=== PATIENT | male | born 1965 | race Caucasian/White ===

== ENCOUNTER 2017-08-13 19:04 | Emergency (ER) | payer BC ==
[2017-08-13 19:45] VITALS: BP 110/68
[2017-08-13] MEDS ORDERED: Lidocaine 1%* 5 ML VIAL INJ ONE (19:48)
--- NOTE | 2017-08-13 20:30 | UC ---
Laceration HPI - HPI Summary HPI Summary: Pt c/o laceratio to palm of right hand. Pt reports that he was picking up metal shovel from yard and cut hand on edge of shovel. Pt had tetanus vaccination in June 2017. - History Of Current Complaint Chief Complaint: UCLaceration Stated Complaint: LACERATION RIGHT HAND Time Seen by Provider: 08/13/17 19:44 Hx Obtained From: Patient Laceration Location: Hand Mechanism Of Injury: Sharp Trauma Onset/Duration: Sudden Onset Severity: Mild Pain Intensity: 1 Aggravating Factors: Position, Movement Related History: Dominant Hand Right - Allergies/Home Medications Allergies/Adverse Reactions: Allergies Allergy/AdvReac Type Severity Reaction Status Date / Time No Known Allergies Allergy Verified 08/13/17 19:41 PMH/Surg Hx/FS Hx/Imm Hx Previously Healthy: Yes - Surgical History Surgical History: None - Family History Known Family History: Positive: Cardiac Disease - Social History Occupation: Employed Full-time Lives: With Family Alcohol Use: Occasionally Substance Use Type: None Smoking Status (MU): Never Smoked Tobacco Have You Smoked in the Last Year: No - Immunization History Most Recent Tetanus Shot: June 2017 Review of Systems Constitutional: Negative Skin: Other - laceration Eyes: Negative ENT: Negative Respiratory: Negative Cardiovascular: Negative Gastrointestinal: Negative Genitourinary: Negative Motor: Negative Neurovascular: Negative Musculoskeletal: Negative Neurological: Negative Psychological: Negative Is Patient Immunocompromised?: No All Other Systems Reviewed And Are Negative: Yes Physical Exam Triage Information Reviewed: Yes Appearance: Well-Appearing Vital Signs: Initial Vital Signs Temp 98.8 F 08/13/17 19:42 Pulse 82 08/13/17 19:42 Resp 18 08/13/17 19:42 BP 110/68 08/13/17 19:42 Pulse Ox 97 08/13/17 19:42 Vital Signs Reviewed: Yes Eye Exam: Normal ENT Exam: Normal Dental Exam: Normal Neck exam: Normal Respiratory Exam: Normal Respiratory: Positive: No respiratory distress Musculoskeletal Exam: Normal Musculoskeletal: Positive: Strength Intact, ROM Intact Neurological Exam: Normal Psychological Exam: Normal Skin Exam: Other - laceration palm of right hand at base of thumb Laceration Repair - Laceration Repair 1 Description: Linear Laceration Size After Repair: Length (cm) - 3.5, Width (mm) - 4, Depth (mm) - 3 Modified For Repair: No Type Injection: Local Anesthesia Used: 1.0% Lido Cleansing Completed Via Routine Prep: Yes Closure Method: Single Layer - 11 sutures of 4-0 Suture Of: Skin Laceration Course/Dx - Course/Dx Course Of Treatment: 11 sutures of 4-0 placed. edges well approximated. tetanus UTD - Differential Dx - Laceration/Wound Differental Diagnoses: Laceration Provider Diagnoses: laceration repair right palm of hand. 11 sutures of 4-0 Discharge - Sign-Out/Discharge Documenting (check all that apply): Discharge/Admit/Transfer - Discharge Plan Condition: Stable Disposition: HOME Prescriptions: Cephalexin CAP* [Keflex 500 CAP*] 500 mg PO Q12H #10 cap Patient Education Materials: Laceration (ED) Referrals: Sybil Pike [Primary Care Provider] - If Needed Additional Instructions: Please return in 8-10 days for suture removal. Please monitor for signs and symptoms of infection such as increased tenderness, redness, swelling, purulent discharge and fever or chills. - Billing Disposition and Condition Condition: STABLE Disposition: HOME
[2017-08-13] MEDS ORDERED: Cephalexin CAP* 500 MG PO ONE (20:39)
== END 2017-08-13 20:49 | disposition home or self-care (01) ==
LOC: UCCORT 19:04
DX: S61.411A Laceration without foreign body of right hand, initial encounter (principal); W27.1XXA Contact with garden tool, initial encounter; Y93.H2 Activity, gardening and landscaping; Y92.007 Garden or yard of unspecified non-institutional (private) residence as the place of occurrence of the external cause
CPT/HCPCS: 12002; 99202; A9270-GY; G0463

== ENCOUNTER 2017-08-23 08:25 | Emergency (ER) | payer BC ==
[2017-08-23 08:52] VITALS: BP 111/69
--- NOTE | 2017-08-23 08:53 | UC ---
HPI Wound/Suture Re-check - HPI Summary HPI Summary: laceration to palm of right hand 10 days ago her for suture removal, tetanus up to date, tolerated antibiodic well. was been working covering wound with dressing - History Of Current Complaint Chief Complaint: UCLaceration Stated Complaint: STITCH REMOVAL - RT HAND Time Seen by Provider: 08/23/17 08:52 Hx Obtained From: Patient Onset/Duration: Sudden Onset, Lasting Days - 10, Resolved Pain Intensity: 0 Pain Scale Used: 0-10 Numeric Procedure Type: Laceration repair palm of right hand Surgery Date: 08/13/17 - Allergies/Home Medications Allergies/Adverse Reactions: Allergies Allergy/AdvReac Type Severity Reaction Status Date / Time No Known Allergies Allergy Verified 08/23/17 08:50 Home Medications: Home Medications NK [No Home Medications Reported] 08/23/17 [History Confirmed 08/23/17] PMH/Surg Hx/FS Hx/Imm Hx Previously Healthy: Yes - Surgical History Surgical History: None - Family History Known Family History: Positive: Cardiac Disease - Social History Occupation: Employed Full-time Lives: With Family Alcohol Use: Occasionally Substance Use Type: None Smoking Status (MU): Former Smoker Type: Smokeless Tobacco Length of Time of Smoking/Using Tobacco: 2 dips/day for ~25 Years Have You Smoked in the Last Year: No When Did the Patient Quit Smoking/Using Tobacco: 2015 - Immunization History Most Recent Tetanus Shot: June 2017 Review of Systems Constitutional: Negative Skin: Other - healing wound right hand Eyes: Negative ENT: Negative Respiratory: Negative Cardiovascular: Negative Gastrointestinal: Negative Genitourinary: Negative Motor: Negative Neurovascular: Negative Musculoskeletal: Negative Neurological: Negative Psychological: Negative Is Patient Immunocompromised?: No All Other Systems Reviewed And Are Negative: Yes Physical Exam Triage Information Reviewed: Yes Appearance: Well-Appearing, No Pain Distress, Well-Nourished Vital Signs: Initial Vital Signs Temp 98.6 F 08/23/17 08:48 Pulse 80 08/23/17 08:48 Resp 16 08/23/17 08:48 BP 111/69 08/23/17 08:48 Pulse Ox 97 08/23/17 08:48 Vital Signs Reviewed: Yes Eye Exam: Normal Eyes: Positive: Conjunctiva Clear ENT Exam: Normal ENT: Positive: Normal ENT inspection, Hearing grossly normal. Negative: Nasal congestion, Trismus, Muffled voice, Hoarse voice Dental Exam: Normal Neck exam: Normal Neck: Positive: Supple, Nontender Respiratory Exam: Normal Respiratory: Positive: No respiratory distress, No accessory muscle use Cardiovascular Exam: Normal Cardiovascular: Positive: RRR, Pulses Normal, Brisk Capillary Refill Musculoskeletal Exam: Normal Musculoskeletal: Positive: Strength Intact, ROM Intact, No Edema Neurological Exam: Normal Neurological: Positive: Alert, Muscle Tone Normal Psychological Exam: Normal Skin Exam: Other Skin: Positive: Other - healing wound palm of right hand Course/Dx - Course Course Of Treatment: sutures removed ---wound well approximated, steri strips with benzoin applied - Differential Dx - Laceration/Wound Provider Diagnoses: suture removal healing wound palm of right hand Discharge - Sign-Out/Discharge Documenting (check all that apply): Discharge/Admit/Transfer - Discharge Plan Condition: Stable Disposition: HOME Patient Education Materials: Skin Adhesive Care (ED), Stitches Removal (ED) Referrals: Sybil Pike [Primary Care Provider] - If Needed - Billing Disposition and Condition Condition: STABLE Disposition: HOME
== END 2017-08-23 09:07 | disposition home or self-care (01) ==
LOC: UCCORT 08:25
DX: S61.411D Laceration without foreign body of right hand, subsequent encounter (principal); X58.XXXD Exposure to other specified factors, subsequent encounter